=== PATIENT | male | born 1945 | race Caucasian/White ===

== ENCOUNTER 2020-05-02 23:24 | Inpatient (IN) | payer MEDICARE ==
[~2020-05-02] VITALS: Ht 162.6 cm; Wt 82.8 kg
[2020-05-03] VITALS (8 sets, daily range): BP systolic 120–162; BP diastolic 55–65; O2SAT 89–94
[2020-05-03] MEDS ORDERED: CLOP75TA2 PO (04:45)
[2020-05-03] MEDS ORDERED: PROAAER10 INH (04:45)
[2020-05-03] MEDS ORDERED: SYNT50TA PO (04:45)
[2020-05-03] MEDS ORDERED: PANT20TA51 PO (04:45)
[2020-05-03] MEDS ORDERED: CIAL10TA PO (04:45)
[2020-05-03] MEDS ORDERED: GABA-845 PO (04:45)
[2020-05-03] MEDS ORDERED: VITMTA PO (04:45)
--- NOTE | 2020-05-03 05:51 | HPEPDOC ---
[facility] Medical History & Physical Date of Admission May 03, 2020 Date of Service: May 03, 2020 Attending Physician: MIKI FELICIANO MD History and Physical CHIEF COMPLAINT: COVID19+, transfer from [facility] Symptom onset date: 04/23/20 Diagnosis date: 04/25/20 HISTORY OF PRESENT ILLNESS: Jermaine Steven is a 74 YO M with history of HTN, LAKEISHA on CPAP, Asthma, BPH who presents as transfer from [facility] for COVID19 encephalopathy. Per his records, the patient was diagnosed with Covid 19 week ago. His son wasn't able to get through to him at home and asked the police to do a welfare check. When the trouper arrived to his home no was piled high as if he hadn't left the house and some time in the patient appeared confused. At one point he was leaning forward at the waist and appeared to be having difficulty breathing. The trouper summoned the rescue squad. Per EMS, the patient was hypoxic at 77% on room air when they arrived on the scene he was placed on a nonrebreather mask at 10 L oxygen and improved to 93%. Otherwise his vitals were stable other than fever of 101. Based on his lab workup and confusion [facility] WEEKEND ANCHOR classified the patient as severe and he was transferred to [facility]. Upon presentation, the patient is alert and oriented, saturating well on room air and very pleasant. He states that his symptoms started only a few days prior to being diagnosed with COVID19, and he has only had diarrhea, now resolved, and loss of appetite. He has had a dry cough but denies any shortness of breath or dyspnea on exertion. He has felt quite fatigued and has been sleeping most of the day. He lives alone and normally makes all his own meals and takes his own medication. PAST MEDICAL HISTORY: 1. HTN 2. LAKEISHA on CPAP 3. Asthma 4. Obesity 5. BPH 6. GERD 7. Lumbar degenerative disc disease 8. History of TIA 9. History of Miranda's esophagus with esophagitis 10. Hypothyroidism 11. History of sinus bradycardia PAST SURGICAL HISTORY: 1. Tonsillectomy 2. Appendectomy 3. Hernia repair 4. Adenoidectomy 5. Vasectomy, 1989 6. Colonoscopy/endoscopy, 2015 SOCIAL HISTORY: Never smoker Denies EtOH Denies other illicit drugs Lives alone. FAMILY HISTORY: Brother-Colon cancer Father-CVA, CAD, arthritis Mother-asthma, arthritis ALLERGIES: Please see below. REVIEW OF SYSTEMS: Constitutional: Reports fatigue, denies fevers, reports loss of appetite ENT/Mouth: No Hearing Changes, No Ear Pain, No Nasal Congestion, No Sinus Pain, No Hoarseness, No sore throat, No Rhinorrhea, No Swallowing Difficulty Eyes: No Eye Pain, No Swelling, No Redness, No Foreign Body, No Discharge, No Vision Changes Cardiovascular: No Chest Pain, No SOB, No PND, No Dyspnea on Exertion, No Orthopnea, No Claudication, No Edema, No Palpitations Respiratory: Reports cough, denies shortness of breath Gastrointestinal: No Nausea, No Vomiting, Reports Diarrhea, No Constipation, No Pain, No Heartburn, No Anorexia, No Dysphagia, No Hematochezia, No Melena, No Flatulence, No Jaundice Genitourinary: No Dysuria Musculoskeletal: No Arthralgias, No Myalgias, No Joint Swelling, No Joint Stiffness, No Back Pain, No Neck Pain Skin: No Skin Lesions, No Pruritis, No Hair Changes, No Breast/Skin Changes, No Nipple Discharge Neuro: No Weakness, No Numbness, No Paresthesias, No Loss of Consciousness, No Syncope, No Dizziness, No Headache, No Coordination Changes, No Recent Falls Psych: No Anxiety/Panic, No Depression, No Insomnia, No Personality Changes, No Delusions Heme/Lymph: No Bruising, No Bleeding, No Transfusions History, No Lymphadenopathy Endocrine: No Polyuria, No Polydipsia, No Temperature Intolerance HOME MEDICATIONS: Please see below. PHYSICAL EXAMINATION: VITAL SIGNS: see below GENERAL: alert and oriented, in no apparent distress, somewhat disheveled, pleasant and conversant in full sentences. HEENT: PERRL, EOMI, Oral mucous membranes are moist without lesions. NECK: The patient has no noted JVD. No adenopathy is appreciated. No thyromegaly CHEST/LUNGS: Lungs are clear bilaterally without rhonchi, rales, or wheezes. There is no subcutaneous air appreciated. There is no tenderness to the chest wall. HEART: Regular rate and rhythm. No murmurs, rubs, or gallops are appreciated. Distal pulses are 2+. No carotid bruits appreciated. ABDOMEN: Soft, nontender, and somewhat distended. Bowel sounds are positive. No organomegaly is appreciated. No masses are appreciated. There are no peritoneal signs. There is no Mcintosh sign. EXTREMITIES: No peripheral edema. There is no focal long bone tenderness or deformity. SKIN: The patients skin is warm and dry, without rashes or lesions. PSYCHIATRIC: AAO x 3, normal mood/affect NEUROLOGIC: No obvious focal deficits LABORATORY DATA: See below. IMAGING: CXR pending Non-Contrast CT CHEST from [facility]: Read: Impression: "COVID" MICROBIOLOGY: Please see below. ASSESSMENT: This is a 74 YO M with history of HTN, Obesity, Asthma, LAKEISHA on CPAP who presents as transfer from [facility] after having been found hypoxic at home with saturation in the 70s and encephalopathic. PLAN: 1. COVID19 PNA: -Inflammatory markers (from [facility]): LDH 263, Cr 1.39, WBC 11,000, -CT chest: -IV Dexamethasone 6mg, day 1 -Incentive spirometry -Oxygen titration, >90% -Encourage proning -Tessalon Pearls for cough -Lovenox: 0.5mg/kg prophylactic dose 2. ?Superimposed bacterial community acquired PNA: -Procalcitonin pending -Empiric Ceftriaxone/Azithromycin, day 1 3. History of hypothyroidism: -TSH/T4 pending -Continue home levothyroxine 4. GERD: -Continue Protonix 5. Hx TIAs: -Continue Plavix DVT ppx: on weight-based ppx dose Lovenox DISPO: pending clinical improvement Home Medications Scheduled Clopidogrel Bisulfate (Clopidogrel) 75 Mg Tablet, 75 MG PO DAILY Gabapentin (Gabapentin) 400 Mg Capsule, 400 MG PO BID Levothyroxine Sodium (Synthroid) 50 Mcg Tablet, 50 MCG PO DAILY Multivitamins (Thera M Plus Tablet) 1 Each Tablet, 1 TAB PO QHS Pantoprazole Sodium (Pantoprazole Sodium) 20 Mg Tablet.dr, 20 MG PO DAILY Tadalafil (Cialis) 10 Mg Tablet, 10 MG PO DAILY Scheduled PRN Albuterol Sulfate (Proair Hfa) 8.5 Gm Hfa.aer.ad, 2 PUFF INH Q4H PRN for SHORTNESS OF BREATH Allergies Coded Allergies: aspirin (Verified Adverse Reaction, Unknown, DIZZINESS, 05/03/20) A-FIB/CHADSVASC A-FIB History Current/History of A-Fib/PAF?: No Current PO Anticoag Therapy: No GME ATTESTATION GME ATTESTATION My faculty preceptor for this patient encounter was physically present during the encounter and was fully available. All aspects of the patient interview, examination, medical decision making process, and medical care plan development were reviewed and approved by the faculty preceptor. The faculty preceptor is aware and concurs with the plan as stated in the body of this note and will attest to such by his/her cosignature. ATTENDING NOTE TIME OF SERVICE Mr. Steven is a 74 yr old w a hx of HTN, LAKEISHA, Asthma and obesity who was diagnosed with COVID 19 about 1 week ago; when police went to check on him he was confused & EMS reported O2 sats as low as 77%. He has been having some issues with his chimney as well. He was transferred here from [facility] for management of encephalopathy & hypoxemia possibly due to COVID vs CO poisoning. Plan: COVID order set / neurochecks / f/u Carboxyhemoglobin level / PFS consult for discharge planning LOU THOMAS MD May 03, 2020 04:48 MIKI FELICIANO MD May 03, 2020 06:49
[2020-05-03 05:56] LABS: ABG BASE EXCESS -4.9 (-2.0-2.0); ABG HCO3 16.5 MEQ/L (22.0-26.0); ABG O2 SATURATION 96.2 % (95.0-99.0); ABG PARTIAL PRESSURE CO2 23.1 mmHg (35.0-45.0); ABG STANDARD HCO3 20.4 MEQ/L (22.0-26.0); ABG TOTAL CO2 17.3 MEQ/L (23.0-31.0); ABG pH (ARTERIAL) 7.473 UNITS (7.350-7.450)
[2020-05-03] MEDS ORDERED: NS 1,000 ML IV ONE (06:00)
[2020-05-03 06:41] LABS: BASO % 0.2 % (0.0-1.0); EOS % 0.1 % (0.0-3.0); HEMATOCRIT 42.9 % (42.0-52.0); LYMPH # 1.8 10^3/uL (1.5-5.0); LYMPH % 17.6 % (24.0-44.0); MEAN CORPUSCULAR HEMOGLOBIN 32.5 pg (27.0-33.0); MEAN CORPUSCULAR VOLUME 93.1 fl (80.0-96.0); MONO # 0.7 10^3/uL (0.0-0.8); MONO % 6.8 % (0.0-5.0); NEUTROPHILS # 7.7 10^3/uL (1.5-8.5); NEUTROPHILS % 74.8 % (36.0-66.0); PLATELET COUNT, AUTOMATED 194 10^3/uL (150-450); RED BLOOD COUNT 4.61 10^6/uL (4.30-6.10); WHITE BLOOD COUNT 10.3 10^3/uL (4.0-10.0)
[2020-05-03] MEDS: LEVOTHYROXINE 50MCG TABLET (0.05MG) PO SCH (06:52)
[2020-05-03] MEDS: AZITHROMYCIN INJ 500 MG, VIAL MATE ADAPTER 1 EACH in D5W 250 ML IV SCH (06:52)
[2020-05-03 06:55] LABS: INR 1.08; PARTIAL THROMBOPLASTIN TIME 29.7 SECONDS (24.2-38.5); PROTHROMBIN TIME 14.2 SECONDS (12.5-14.3)
[2020-05-03 06:58] LABS: D-DIMER QUANT 647.64 ng/ml (<500)
[2020-05-03] MEDS ORDERED: cefTRIAXone SOD 500 MG in D5W MINI-BAG PLUS 50 ML IV SCH (07:00)
--- NOTE | 2020-05-03 07:01 | REPVR ---
PROCEDURE INFORMATION: Exam: XR Chest, 1 View Exam date and time: 05/03/19 Age: 74 years old Clinical indication: Shortness of breath; Additional info: Covid19 pna TECHNIQUE: Imaging protocol: XR of the chest Views: 1 view. COMPARISON: No relevant prior studies available. FINDINGS: Lungs: Interstitial prominence and trace airspace disease. Pleural space: No pleural effusion. Heart/Mediastinum: Unremarkable. No cardiomegaly. Bones/joints: Degenerative change. IMPRESSION: Interstitial prominence and trace airspace disease. Electronically signed by: Kenton Trevino On 05/03/2020 07:00:48 AM
[2020-05-03 07:09] LABS: ALBUMIN 2.8 GM/DL (3.2-5.2); ALT/SGPT 41 U/L (12-78); BILIRUBIN,DIRECT 0.3 MG/DL (0.0-0.2); BILIRUBIN,TOTAL 0.7 MG/DL (0.2-1.0); BLOOD UREA NITROGEN 20 MG/DL (7-18); C REACTIVE PROTEIN QUANTITATIV 5.81 MG/DL (0.00-0.30); CARBON DIOXIDE LEVEL 24 MEQ/L (21-32); CHLORIDE LEVEL 108 MEQ/L (98-107); CPK CREATINE PHOSPHOKINASE 585 U/L (39-308); CREATININE FOR GFR 1.14 MG/DL (0.70-1.30); FERRITIN 932 NG/ML (26-388); GLOMERULAR FILTRATION RATE > 60.0 (>42); GLUCOSE, FASTING 121 MG/DL (70-100); LDH LACTATE DEHYDROGENASE 255 U/L (87-241); MAGNESIUM LEVEL 1.9 MG/DL (1.8-2.4); NT-PRO BNP 158 PG/ML (<450); POTASSIUM SERUM 3.4 MEQ/L (3.5-5.1); SODIUM LEVEL 141 MEQ/L (136-145); TOTAL PROTEIN 6.4 GM/DL (6.4-8.2); TROPONIN I < 0.02 NG/ML (< 0.10)
[2020-05-03 07:14] LABS: FREE T4 1.38 NG/DL (0.76-1.46)
[2020-05-03] MEDS ORDERED: POTASSIUM CHLORIDE 10 MEQ SR TABLET PO ONE (08:30)
[2020-05-03] MEDS: ENOXAPARIN 40MG/0.4ML SYRINGE (J1650 PER 10MG) SC SCH ×2 (08:54→22:33)
[2020-05-03] MEDS: GABAPENTIN 400MG CAP PO SCH ×2 (08:54→22:32)
[2020-05-03] MEDS: PANTOPRAZOLE 20 MG TAB PO SCH (08:54)
[2020-05-03] MEDS: BENZONATATE 100 MG CAP PO SCH ×3 (08:54→22:32)
[2020-05-03] MEDS: CLOPIDOGREL 75 MG TAB PO SCH (08:54)
[2020-05-03] MEDS: dexameTHASONE 20MG/5ML VIAL (J1100 PER 1MG) IV SCH (08:54)
[2020-05-03] MEDS ORDERED: COMBIVENT RESPIMAT 100-20MCG INHALER 4GM INH PRN (09:00)
[2020-05-03] MEDS: cefTRIAXone SOD 2 GM in D5W MINI-BAG PLUS 50 ML IV SCH (11:25)
--- NOTE | 2020-05-03 15:15 | IPNPDOC ---
Text Note Date of Service The patient was seen on 05/03/20. NOTE Tested positive on 04/25/2020 Symptoms onset on 04/23/2020 Subjective: Patient seen and examined at bedside. He reports to be having multiple episodes of bowel movements/diarrhea, he is hard of hearing, he is alert oriented 3. Denies having any shortness of breath, cough. No acute events overnight. Physical exam: Gen.: Patient is alert oriented 3, in no acute distress. CVS: S1-S2 heard, no murmur heard. Respiratory: Clear bilateral breath sounds, no rhonchi or rails or wheezes Abdomen: Soft, nontender, positive bowel sounds. Extremities: 1+ pedal edema noted bilaterally in the ankles. NIGHT CLERK AUDITOR: Alert oriented 3, no focal deficits. Assessment: 74 year old male patient with past medical history of hypertension, LAKEISHA on CPAP at home, asthma, hypothyroidism, BPH, obesity who was transferred from [facility] after having an hypoxic episode at home with a saturation of 77%. He was taken to [facility] by EMS on nonrebreather 10 L 93% saturation. He was transferred to [facility] saying patient is mildly confused and encephalopathic, but on arrival to [facility] patient is alert oriented 3. Plan: Covid - 19 pneumonia: - Patient won't be a candidate for Remdisvir given he was tested positive on 25 of April. - Will continue dexamethasone 6 mg, day 1 - He did receive a dose of azithromycin in the ED, and he was started on ceftriaxone and today would be day 1. - Will continue Lovenox 40 mg twice a day for now given his d-dimer is 647 - Encourage patient to use incentive spirometry. - Alyce Trevino for cough Diarrhea: - Was likely due to Covid infection. -Will not consider getting a GI panel at this point of time. Suspected Community acquired pneumonia: - Pro-calcitonin pending - Serology for Mycoplasma pneumonia pending. - Will continue ceftriaxone for now. Hypokalemia: - Patient has a potential most 3.4 this morning. - Was replaced with oral potassium chloride. Hypothyroidism: - Continue home medications levothyroxine GERD:- - Will Continue Protonix History of TIAs: - Continue Plavix DVT prophylaxis: - On Lovenox 40 mg twice a day. Disposition: Pending clinical improvement. VS,Fishbone, I+O VS, Fishbone, I+O Laboratory Tests 05/03/20 06:12 Vital Signs Date Time Temp Pulse Resp B/P (MAP) Pulse Ox O2 Delivery O2 Flow Rate FiO2 05/03/20 12:00 91 Room Air 05/03/20 07:47 99.5 76 22 120/55 (76) I&O- Last 24 Hours up to 6 AM 05/03/20 06:00 Intake Total 0 ml Output Total 0 ml Balance 0 ml GME ATTESTATION GME ATTESTATION My faculty preceptor for this patient encounter was physically present during the encounter and was fully available. All aspects of the patient interview, examination, medical decision making process, and medical care plan development were reviewed and approved by the faculty preceptor. The faculty preceptor is aware and concurs with the plan as stated in the body of this note and will attest to such by his/her cosignature. ATTENDING NOTE I, Presley Valle MD, have independently examined this patient and performed my own physical exam, as well as reviewed the documentation and edited where necessary. I have discussed in detail with the resident / student the findings and plan of treatment as documented by the resident / student and edited their note. I agree with their findings and treatment plan and have edited their documentation. Olman Diamond MD May 03, 2020 15:15 PRESLEY VALLE MD May 10, 2020 12:48
[2020-05-03] MEDS: MULTIVITAMINS/MINERALS THERAP 1 TAB PO SCH (22:32)
[2020-05-04 00:29] VITALS: O2SAT 95
[2020-05-04 04:47] VITALS: BP 144/89
[2020-05-04] MEDS: LEVOTHYROXINE 50MCG TABLET (0.05MG) PO SCH (05:07)
[2020-05-04] MEDS: AZITHROMYCIN INJ 500 MG, VIAL MATE ADAPTER 1 EACH in D5W 250 ML IV SCH (05:08)
[2020-05-04 06:14] LABS: HEMATOCRIT 41.3 % (42.0-52.0); HEMOGLOBIN 14.3 g/dl (13.5-17.5); LYMPH # 1.1 10^3/uL (1.5-5.0); LYMPH % 14.3 % (24.0-44.0); MEAN CORPUSCULAR HEMOGLOBIN 32.4 pg (27.0-33.0); MEAN CORPUSCULAR HGB CONC 34.6 g/dl (32.0-36.5); MEAN CORPUSCULAR VOLUME 93.4 fl (80.0-96.0); MONO # 0.5 10^3/uL (0.0-0.8); MONO % 7.2 % (0.0-5.0); NEUTROPHILS # 5.7 10^3/uL (1.5-8.5); NEUTROPHILS % 77.4 % (36.0-66.0); PLATELET COUNT, AUTOMATED 210 10^3/uL (150-450); RED BLOOD COUNT 4.42 10^6/uL (4.30-6.10); WHITE BLOOD COUNT 7.4 10^3/uL (4.0-10.0)
[2020-05-04 06:28] VITALS: O2SAT 95
[2020-05-04 06:49] LABS: ALBUMIN 2.6 GM/DL (3.2-5.2); ALT/SGPT 36 U/L (12-78); BILIRUBIN,TOTAL 0.3 MG/DL (0.2-1.0); BLOOD UREA NITROGEN 17 MG/DL (7-18); C REACTIVE PROTEIN QUANTITATIV 4.11 MG/DL (0.00-0.30); CALCIUM LEVEL 9.1 MG/DL (8.8-10.2); CARBON DIOXIDE LEVEL 24 MEQ/L (21-32); CHLORIDE LEVEL 110 MEQ/L (98-107); CREATININE FOR GFR 0.96 MG/DL (0.70-1.30); FERRITIN 911 NG/ML (26-388); GLOMERULAR FILTRATION RATE > 60.0 (>42); GLUCOSE, FASTING 168 MG/DL (70-100); LDH LACTATE DEHYDROGENASE 230 U/L (87-241); POTASSIUM SERUM 3.6 MEQ/L (3.5-5.1); SODIUM LEVEL 143 MEQ/L (136-145); TOTAL PROTEIN 6.2 GM/DL (6.4-8.2)
[2020-05-04] MEDS: dexameTHASONE 20MG/5ML VIAL (J1100 PER 1MG) IV SCH (08:25)
[2020-05-04] MEDS: ENOXAPARIN 40MG/0.4ML SYRINGE (J1650 PER 10MG) SC SCH ×2 (08:25→21:03)
[2020-05-04] MEDS: PANTOPRAZOLE 20 MG TAB PO SCH (08:26)
[2020-05-04] MEDS: GABAPENTIN 400MG CAP PO SCH ×2 (08:26→21:03)
[2020-05-04] MEDS: BENZONATATE 100 MG CAP PO SCH ×3 (08:26→21:03)
[2020-05-04] MEDS: CLOPIDOGREL 75 MG TAB PO SCH (08:26)
[2020-05-04] MEDS: cefTRIAXone SOD 2 GM in D5W MINI-BAG PLUS 50 ML IV SCH (08:26)
--- NOTE | 2020-05-04 10:13 | IPNPDOC ---
Text Note Date of Service The patient was seen on 05/04/20. NOTE Tested positive on 04/25/2020. Symptoms onset on 04/23/2020 Subjective: Patient seen at bedside and examined today. Mr. Dean is having his breakfast when I went to see him, He reports his bowel movements have come down and had no bowel movements since night and today morning. He denies having any shortness of breath, reports having mild dry cough, no acute events overnight, patient reports to be eating well and sleeping well. Physical exam: GEN: Patient is a little oriented 3, no acute distress CVS: S1 and S2 heard, no murmur appreciated. Respiratory: Clear bilateral breath sounds heard in both lungs, no rhonchi or wheezes. Abdomen: Soft to touch, no tenderness, positive bowel sounds heard. Extremities: No edema, no clubbing. CONFIGURATION TECHNICIAN: Alert oriented 3, no focal deficits. Assessment: 74-year-old male patient with past medical history of HTN, LAKEISHA on CPAP at home, asthma, hypothyroidism, BPH and obesity was transferred from [facility] after having a hypoxic episode at home with saturation of 77%. He was taken to [facility] by EMS on nonrebreather at 10 L 93% saturation. He was transferred to [facility] saying patient is having mild confusion and encephalopathic, on arrival to [facility] patient is alert oriented 3. Plan: Covid 19 pneumonia: - patient won't be a candidate for remdisvir given he was tested positive on Apr.] - Continue dexamethasone 6 mg, today would be day 2. - Continue azithromycin 500 MG, ceftriaxone 2 g daily. Today is day 2 of antibiotics. - Continue Lovenox 40 mg twice a day. - Encourage patient to use incentive spirometry as much as possible. - Continue Tessalon Perles for cough - Patient CRP is trending down today at 4.11 came down from 5.81. Diarrhea: -Patient reports he had no bowel movement since yesterday night. Suspected community-acquired pneumonia: - Pro-Alex is 0.09, unlikely bacterial pneumonia. Serology Mycoplasma pneumonia pending, most likely will be comeback negative. - Will continue ceftriaxone and azithromycin for now Hypothyroidism: - Continue home medication levothyroxin GERD: - Will continue Protonix History of TIAs: -As patient is is allergic to aspirin . -Patient is on Plavix 75 MG at home will continue that. DVT prophylaxis: - Will continue Lovenox 40 mg twice a day Disposition: - Patient seems to be doing well today and is on room air saturating at 95%, He can be discharged in a day or 2 if develops no new symptoms and is still on room air. VS,Fishbone, I+O VS, Fishbone, I+O Laboratory Tests 05/04/20 05:53 Vital Signs Date Time Temp Pulse Resp B/P (MAP) Pulse Ox O2 Delivery O2 Flow Rate FiO2 05/04/20 06:28 95 Room Air 05/04/20 04:47 96.8 50 18 144/89 (107) I&O- Last 24 Hours up to 6 AM 05/04/20 06:00 Intake Total 1640 ml Output Total 0 ml Balance 1640 ml Olman Diamond MD May 04, 2020 10:12
[2020-05-04 14:00] VITALS: BP 132/63
[2020-05-04 20:39] VITALS: BP 145/65
[2020-05-04 20:48] VITALS: O2SAT 94
[2020-05-04] MEDS: MULTIVITAMINS/MINERALS THERAP 1 TAB PO SCH (21:03)
[2020-05-05] VITALS (17 sets, daily range): BP systolic 135–167; BP diastolic 67–77; O2SAT 94–98
[2020-05-05] MEDS: LEVOTHYROXINE 50MCG TABLET (0.05MG) PO SCH (05:34)
[2020-05-05] MEDS: AZITHROMYCIN INJ 500 MG, VIAL MATE ADAPTER 1 EACH in D5W 250 ML IV SCH (05:35)
[2020-05-05 07:03] LABS: BASO % 0.1 % (0.0-1.0); HEMOGLOBIN 14.7 g/dl (13.5-17.5); LYMPH # 1.3 10^3/uL (1.5-5.0); LYMPH % 11.4 % (24.0-44.0); MEAN CORPUSCULAR HEMOGLOBIN 32.8 pg (27.0-33.0); MEAN CORPUSCULAR VOLUME 93.8 fl (80.0-96.0); MONO # 0.7 10^3/uL (0.0-0.8); MONO % 6.5 % (0.0-5.0); NEUTROPHILS # 9.1 10^3/uL (1.5-8.5); NEUTROPHILS % 81.4 % (36.0-66.0); PLATELET COUNT, AUTOMATED 226 10^3/uL (150-450); RED BLOOD COUNT 4.48 10^6/uL (4.30-6.10); WHITE BLOOD COUNT 11.2 10^3/uL (4.0-10.0)
[2020-05-05 07:35] LABS: ALBUMIN 2.5 GM/DL (3.2-5.2); ALT/SGPT 37 U/L (12-78); BILIRUBIN,TOTAL 0.3 MG/DL (0.2-1.0); BLOOD UREA NITROGEN 21 MG/DL (7-18); C REACTIVE PROTEIN QUANTITATIV 1.66 MG/DL (0.00-0.30); CARBON DIOXIDE LEVEL 23 MEQ/L (21-32); CHLORIDE LEVEL 110 MEQ/L (98-107); CREATININE FOR GFR 0.98 MG/DL (0.70-1.30); FERRITIN 768 NG/ML (26-388); GLOMERULAR FILTRATION RATE > 60.0 (>42); GLUCOSE, FASTING 160 MG/DL (70-100); LDH LACTATE DEHYDROGENASE 231 U/L (87-241); POTASSIUM SERUM 3.8 MEQ/L (3.5-5.1); SODIUM LEVEL 144 MEQ/L (136-145); TOTAL PROTEIN 6.1 GM/DL (6.4-8.2)
[2020-05-05] MEDS: dexameTHASONE 20MG/5ML VIAL (J1100 PER 1MG) IV SCH (09:30)
[2020-05-05] MEDS: cefTRIAXone SOD 2 GM in D5W MINI-BAG PLUS 50 ML IV SCH (09:31)
[2020-05-05] MEDS: BENZONATATE 100 MG CAP PO SCH ×3 (09:31→21:11)
[2020-05-05] MEDS: ENOXAPARIN 40MG/0.4ML SYRINGE (J1650 PER 10MG) SC SCH ×2 (09:31→21:12)
[2020-05-05] MEDS: GABAPENTIN 400MG CAP PO SCH ×2 (09:31→21:11)
[2020-05-05] MEDS: CLOPIDOGREL 75 MG TAB PO SCH (09:31)
[2020-05-05] MEDS: PANTOPRAZOLE 20 MG TAB PO SCH (09:32)
--- NOTE | 2020-05-05 14:54 | IPNPDOC ---
Date Seen The patient was seen on 05/05/20. Progress Note SUBJECTIVE: She is seen and examined at bedside. Saturating 98% on room air. Doing well. No acute events overnight. PT is recommending likely rehabilitation after discharge. Denies chest pain, fevers, chills, nausea, vomiting, diarrhea, shortness of breath, palpitations. OBJECTIVE PHYSICAL EXAMINATION: VITAL SIGNS: please see below General: NAD, comfortable HEENT: PERRLA, EOMI, sclerae clear Neck: supple, normal ROM, no JVD Respiratory: lungs CTAB, no wheeze, no rales, no crackles CVS: RRR, normal S1, S2, no murmurs Abdo: soft, no masses, no hepatosplenomegaly, BS+, no rebound tenderness Extremities: no edema, pulses 2+ MSK: no joint deformities, normal ROM Neuro: no focal neuro deficits, moving all 4 extremities, CN2-12 intact. Strength 5/5 in all 4 extremities. No nystagmus. Psych: calm, cooperative, AAO x 3 LABORATORY DATA, IMAGING STUDIES, MICROBIOLOGY: Please see below. DVT prophylaxis ordered?: Replace prophylactic dosing Lovenox 0.5 mg/kg every 12 hours. ASSESSMENT AND PLAN: 74-year-old male patient with past medical history of HTN, LAKEISHA on CPAP at home, asthma, hypothyroidism, BPH and obesity was transferred from [facility] after having a hypoxic episode at home with saturation of 77%. He was taken to [facility] by EMS on nonrebreather at 10 L 93% saturation. He was transferred to [facility] saying patient is having mild confusion and encephalopathic, on arrival to [facility] patient is alert oriented 3. PROBLEMS: Covid 19 pneumonia: - not a candidate for remdesivir as out of chronicity window (positive on 04/25/20) - as no hypoxia, stop dexamethasone IV (completed 2 days), continue prednisone 40 mg x 5 days. - s/p 2 days ceftriaxone, zithro - switched to doxycycline 100 mg BID x 5 days - lovenox 0.5 mg/kg q12h - Encourage patient to use incentive spirometry as much as possible. - tessalon - CRP trending down Diarrhea -resolved Suspected community-acquired pneumonia: - Pro-Alex is 0.09, unlikely bacterial pneumonia. Serology Mycoplasma pneumonia pending, most likely will be comeback negative. - DC ceftriaxone, azithromycin - complete 5 days doxycycline PO q12h (EOT 05/10/20) Hypothyroidism: - Continue home medication levothyroxin GERD: -Protonix History of TIAs: -As patient is is allergic to aspirin . -Plavix 75 mg. DVT prophylaxis: -SCDs. 10 Lovenox weight-based prophylactic dosing, 0.5 mg/kg every 12 hours. Dispo: PT recommending rehab VS, I&O, 24H, Fishbone Vital Signs/I&O Vital Signs Date Time Temp Pulse Resp B/P (MAP) Pulse Ox O2 Delivery O2 Flow Rate FiO2 05/05/20 12:00 98 Room Air 05/05/20 09:32 95.7 51 20 153/67 (95) I&O- Last 24 Hours up to 6 AM 05/05/20 06:00 Intake Total 530 ml Balance 530 ml Laboratory Data 24H LABS Laboratory Tests 2 05/05/20 06:09: Immature Granulocyte % (Auto) 0.6, Neutrophils (%) (Auto) 81.4H, Lymphocytes (%) (Auto) 11.4L, Monocytes (%) (Auto) 6.5H, Eosinophils (%) (Auto) 0.0, Basophils (%) (Auto) 0.1, Neutrophils # (Auto) 9.1H, Lymphocytes # (Auto) 1.3L, Monocytes # (Auto) 0.7, Eosinophils # (Auto) 0.0, Basophils # (Auto) 0.0, Nucleated Red Blood Cells % (auto) 0.0, Fibrinogen 558H, Anion Gap 11, Glomerular Filtration Rate > 60.0, Calcium Level 10.0, Ferritin 768H, Total Bilirubin 0.3, Aspartate Amino Transf (AST/SGOT) 23, Alanine Aminotransferase (ALT/SGPT) 37, Alkaline Phosphatase 63, Lactate Dehydrogenase 231, C-Reactive Protein, Quantitative 1.66H, Total Protein 6.1L, Albumin 2.5L, Albumin/Globulin Ratio 0.7 CBC/BMP Laboratory Tests 05/05/20 06:09 Microbiology Microbiology 05/03/20 Blood Culture - Preliminary, Resulted No Growth after 48 hours. All Specime... 05/03/20 Blood Culture - Preliminary, Resulted No Growth after 48 hours. All Specime... AV CHAU MD May 05, 2020 14:54
[2020-05-05] MEDS: DOXYCYCLINE HYCLATE 100MG TABLET PO SCH (21:11)
[2020-05-05] MEDS: MULTIVITAMINS/MINERALS THERAP 1 TAB PO SCH (21:11)
[2020-05-06] VITALS (13 sets, daily range): BP systolic 154; BP diastolic 70; O2SAT 96–98
[2020-05-06] MEDS: LEVOTHYROXINE 50MCG TABLET (0.05MG) PO SCH (06:13)
[2020-05-06] MEDS: GABAPENTIN 400MG CAP PO SCH (09:15)
[2020-05-06] MEDS: BENZONATATE 100 MG CAP PO SCH ×2 (09:15→16:43)
[2020-05-06] MEDS: CLOPIDOGREL 75 MG TAB PO SCH (09:15)
[2020-05-06] MEDS: dexameTHASONE 20MG/5ML VIAL (J1100 PER 1MG) IV SCH (09:15)
[2020-05-06] MEDS: PANTOPRAZOLE 20 MG TAB PO SCH (09:15)
[2020-05-06] MEDS: DOXYCYCLINE HYCLATE 100MG TABLET PO SCH (09:15)
[2020-05-06] MEDS: ENOXAPARIN 40MG/0.4ML SYRINGE (J1650 PER 10MG) SC SCH (09:16)
[2020-05-06 09:36] LABS: BASO % 0.2 % (0.0-1.0); HEMATOCRIT 46.2 % (42.0-52.0); HEMOGLOBIN 15.7 g/dl (13.5-17.5); LYMPH # 1.6 10^3/uL (1.5-5.0); LYMPH % 12.7 % (24.0-44.0); MEAN CORPUSCULAR HEMOGLOBIN 32.2 pg (27.0-33.0); MEAN CORPUSCULAR VOLUME 94.7 fl (80.0-96.0); MONO # 0.9 10^3/uL (0.0-0.8); MONO % 6.7 % (0.0-5.0); NEUTROPHILS # 10.2 10^3/uL (1.5-8.5); NEUTROPHILS % 79.6 % (36.0-66.0); PLATELET COUNT, AUTOMATED 230 10^3/uL (150-450); RED BLOOD COUNT 4.88 10^6/uL (4.30-6.10); WHITE BLOOD COUNT 12.8 10^3/uL (4.0-10.0)
[2020-05-06 10:24] LABS: ALT/SGPT 63 U/L (12-78); BLOOD UREA NITROGEN 19 MG/DL (7-18); CALCIUM LEVEL 10.3 MG/DL (8.8-10.2); CARBON DIOXIDE LEVEL 25 MEQ/L (21-32); CHLORIDE LEVEL 110 MEQ/L (98-107); GLOMERULAR FILTRATION RATE > 60.0 (>42); GLUCOSE, FASTING 106 MG/DL (70-100); LDH LACTATE DEHYDROGENASE 298 U/L (87-241); POTASSIUM SERUM 3.8 MEQ/L (3.5-5.1); SODIUM LEVEL 144 MEQ/L (136-145)
[2020-05-06 10:25] LABS: BILIRUBIN,TOTAL 0.5 MG/DL (0.2-1.0); C REACTIVE PROTEIN QUANTITATIV 0.94 MG/DL (0.00-0.30); FERRITIN 892 NG/ML (26-388); TOTAL PROTEIN 6.7 GM/DL (6.4-8.2)
[2020-05-06] MEDS ORDERED: PRED20TA PO (11:57)
[2020-05-06] MEDS ORDERED: BENZ-18 PO (11:57)
[2020-05-06] MEDS ORDERED: COMBAER6 INH (11:57)
[2020-05-06] MEDS ORDERED: DOXY100T PO (11:57)
--- NOTE | 2020-05-06 12:00 | DS.PDOC ---
Discharge Summary General Date of Admission May 03, 2020 at 04:33 Date of Discharge 05/06/2020 Discharge Summary PROCEDURES PERFORMED DURING STAY: None. ADMITTING/DISCHARGE DIAGNOSES: 1. Covid 19 pneumonia 2. Diarrhea 3. Hypothyroidism 4. GERD 5. History of TIA's 6. History of sinus bradycardia 7. History of Miranda's esophagus with esophagitis 8. Asthma 9. BPH 10. Obesity 11. [place]IS[place] on CPAP 12. Hypertension COMPLICATIONS/CHIEF COMPLAINT: Covid+, Encephalopathy. HISTORY OF PRESENT ILLNESS: Jermaine Steven is a 74 YO M with history of HTN, LAKEISHA on CPAP, Asthma, BPH who presents as transfer from [facility] for COVID19 encephalopathy. Per his records, the patient was diagnosed with Covid 19 week ago. His son wasn't able to get through to him at home and asked the police to do a welfare check. When the trouper arrived to his home no was piled high as if he hadn't left the house and some time in the patient appeared confused. At one point he was leaning forward at the waist and appeared to be having difficulty breathing. The trouper summoned the rescue squad. Per EMS, the patient was hypoxic at 77% on room air when they arrived on the scene he was placed on a nonrebreather mask at 10 L oxygen and improved to 93%. Otherwise his vitals were stable other than fever of 101. Based on his lab workup and confusion [facility] [employer] classified the patient as severe and he was transferred to [facility]. Upon presentation, the patient is alert and oriented, saturating well on room air and very pleasant. He states that his symptoms started only a few days prior to being diagnosed with COVID19, and he has only had diarrhea, now resolved, and loss of appetite. He has had a dry cough but denies any shortness of breath or dyspnea on exertion. He has felt quite fatigued and has been sleeping most of the day. He lives alone and normally makes all his own meals and takes his own medication. HOSPITAL COURSE: Patient was admitted to the hospital and started on IV dexamethasone and was started on Rocephin and azithromycin for possible superimposed bacterial pneumonia. The course of his stay he initially had multiple loose bowel movements however these slowly resolved. His CRP and inflammatory markers slowly came down. His pro calcitonin was 0.09 so his Rocephin and azithromycin were discontinued after 2 days however there is concern for possible atypical pneumonia still so he was continued on doxycycline orally for 5 days. He was also transitioned from IV dexamethasone to oral prednisone for an additional 5 days. His discharge was delayed 2 days pending PT clearance. DISCHARGE MEDICATIONS: Please see below. ALLERGIES: Please see below. PHYSICAL EXAMINATION ON DISCHARGE: VITAL SIGNS: Please see below. General: Well-appearing male resting comfortably in bed in no acute distress. HEENT: NC, AT, EOMI, sclerae clear Neck: supple, normal ROM, no JVD Respiratory: lungs CTAB, no wheeze, no crackles, no rhonchi. CVS: RRR, normal S1, S2, no murmurs Abdo: soft, no masses, no hepatosplenomegaly, BS+, no rebound tenderness Extremities: no edema, pulses 2+ MSK: no joint deformities, normal ROM Neuro: no focal neuro deficits, moving all 4 extremities, CN2-12 intact. No gait abnormalities observed. Psych: calm, cooperative, AAO x 3 LABORATORY DATA: Please see below. IMAGIN05/03/2020 chest x-ray: Interstitial prominence and trace airspace disease. PROGNOSIS: Fair ACTIVITY: Per PT/OT DIET: As tolerated DISCHARGE PLAN: Home with services DISCHARGE INSTRUCTIONS: 1. Continue with doxycycline for 5 days, continue with prednisone for 5 days, continue with Tessalon Perles and Combivent as needed. 2. Follow-up with PCP in the next week. DISCHARGE CONDITION: Stable. TIME SPENT ON DISCHARGE: 33 minutes. Vital Signs/I&Os Vital Signs Date Time Temp Pulse Resp B/P (MAP) Pulse Ox O2 Delivery O2 Flow Rate FiO2 05/06/20 10:00 98 Room Air 05/06/20 08:12 95.8 42 19 154/70 (98) I&O- Last 24 Hours up to 6 AM 05/06/20 06:00 Intake Total 1405 ml Output Total 600 ml Balance 805 ml Laboratory Data Labs 24H Laboratory Tests 2 05/06/20 08:34: Immature Granulocyte % (Auto) 0.8, Neutrophils (%) (Auto) 79.6H, Lymphocytes (%) (Auto) 12.7L, Monocytes (%) (Auto) 6.7H, Eosinophils (%) (Auto) 0.0, Basophils (%) (Auto) 0.2, Neutrophils # (Auto) 10.2H, Lymphocytes # (Auto) 1.6, Monocytes # (Auto) 0.9H, Eosinophils # (Auto) 0.0, Basophils # (Auto) 0.0, Nucleated Red Blood Cells % (auto) 0.0, Fibrinogen 522H, Anion Gap 9, Glomerular Filtration Rate > 60.0, Calcium Level 10.3H, Ferritin 892H, Total Bilirubin 0.5#, Aspartate Amino Transf (AST/SGOT) 38H, Alanine Aminotransferase (ALT/SGPT) 63, Alkaline Phosphatase 70, Lactate Dehydrogenase 298H, C-Reactive Protein, Quantitative 0.94H, Total Protein 6.7, Albumin 3.0L, Albumin/Globulin Ratio 0.8 CBC/BMP Laboratory Tests 05/06/20 08:34 Microbiology Microbiology 05/03/20 Blood Culture - Preliminary, Resulted No Growth after 72 hours. All specime... 05/03/20 Blood Culture - Preliminary, Resulted No Growth after 72 hours. All specime... Discharge Medications Scheduled Benzonatate (Benzonatate) 100 Mg Capsule, 200 MG PO TID Take 1 capsule by mouth three times daily for cough Clopidogrel Bisulfate (Clopidogrel) 75 Mg Tablet, 75 MG PO DAILY, (Reported) Doxycycline Hyclate (Doxycycline Hyclate) 100 Mg Tablet, 100 MG PO BID Take 1 tablet twice daily for 4 more days Gabapentin (Gabapentin) 400 Mg Capsule, 400 MG PO BID, (Reported) Levothyroxine Sodium (Synthroid) 50 Mcg Tablet, 50 MCG PO DAILY, (Reported) Multivitamins (Thera M Plus Tablet) 1 Each Tablet, 1 TAB PO QHS, (Reported) Pantoprazole Sodium (Pantoprazole Sodium) 20 Mg Tablet.dr, 20 MG PO DAILY, (Reported) Prednisone (Prednisone) 20 Mg Tablet, 1 TAB PO BID Tadalafil (Cialis) 10 Mg Tablet, 10 MG PO DAILY, (Reported) Scheduled PRN Albuterol Sulfate (Proair Hfa) 8.5 Gm Hfa.aer.ad, 2 PUFF INH Q4H PRN for SHORTNESS OF BREATH, (Reported) Ipratropium/Albuterol Sulfate (Combivent Respimat 20-100 Mcg) 4 Gm Mist.inhal, 1 PUFF INH Q6HP PRN for SHORTNESS OF BREATH Inhale every 6 hours as needed for shortness of breath or wheezing. Allergies Coded Allergies: aspirin (Verified Adverse Reaction, Unknown, DIZZINESS, 05/03/20) GME ATTESTATION GME ATTESTATION My faculty preceptor for this patient encounter was physically present during the encounter and was fully available. All aspects of the patient interview, examination, medical decision making process, and medical care plan development were reviewed and approved by the faculty preceptor. The faculty preceptor is aware and concurs with the plan as stated in the body of this note and will attest to such by his/her cosignature. ATTENDING NOTE I, Presley Harris MD, have independently examined this patient and performed my own physical exam, as well as reviewed the documentation and edited where ne cessary. I have discussed in detail with the resident / student the findings and plan of treatment as documented by the resident / student and edited their note. I agree with their findings and treatment plan and have edited their documentation. EVANGELISTA REBOLLAR DO May 06, 2020 12:00 PRESLEY HARRIS MD May 10, 2020 12:50
[2020-05-06 13:07] LABS: BODY FLUID CULTURE Not indicated. (.); LEGIONELLA ANTIGEN URINE Negative (Negative); ORGANISM ID Not indicated. (.); SPECIMEN SOURCE Urine (.); URINE STREP PNEUMONIAE ANTIGEN Negative (Negative)
[2020-05-06 14:09] LABS: MYCOPLASMA PNEUMONIAE IgG <100 U/mL (0-99); MYCOPLASMA PNEUMONIAE IgM <770 U/mL (0-769)
== END 2020-05-06 18:35 | disposition home health service (06) | DRG 177 ==
LOC: M 4MAIN 05-03 04:33
PROVIDERS: ADMIT Internal Medicine; ATTEND Internal Medicine
DX: U07.1 COVID-19 (principal); J12.89 Other viral pneumonia; G93.40 Encephalopathy, unspecified; I10 Essential (primary) hypertension; E03.9 Hypothyroidism, unspecified; E66.9 Obesity, unspecified; K21.9 Gastro-esophageal reflux disease without esophagitis; N40.0 Benign prostatic hyperplasia without lower urinary tract symptoms; G47.33 Obstructive sleep apnea (adult) (pediatric); Z86.73 Personal history of transient ischemic attack (TIA), and cerebral infarction without residual deficits; J45.909 Unspecified asthma, uncomplicated; K22.70 Barrett's esophagus without dysplasia; R19.7 Diarrhea, unspecified; Z79.899 Other long term (current) drug therapy; Z88.6 Allergy status to analgesic agent; E87.6 Hypokalemia

== ENCOUNTER → 2020-11-27 | Outpatient (CLI) | payer MEDICARE, OTHER ==
[~2020-11-27] MED LIST: BENZ-18 PO; CIAL10TA PO; CLOP75TA2 PO; COMBAER6 INH; DOXY100T PO; E-Z-GAS II EFFERVESCENT PACKET (SODIUM BICARB./CITRIC ACID/SIMETHICONE) As Ordered ONE; E-Z-HD 98% w/w 340GM SUSP BTL As Ordered ONE; E-Z-PAQUE 96% w/w SUSP 176GM BTL As Ordered ONE; GABA-283 PO; PANT20TA51 PO; PRED20TA PO; PROAAER10 INH; SYNT50TA PO; VITMTA PO
--- NOTE | 2020-11-27 16:40 | REP ---
INDICATION: DYSPHAGIA. COMPARISON: None TECHNIQUE: This procedure was performed by Adilene Monique [facility], under the direct supervision of Dr. Hull. Images were reviewed with Dr. Hull prior to dictation. Liquid barium and gas producing crystals were given in the erect position, as well as liquid barium in the prone oblique position in order to perform a double contrast esophagram examination. FINDINGS: A single view PA chest x-ray is submitted as a immigration coordinator film. The superior mediastinal structures are midline. The heart size is within normal limits. The lungs are clear. The oral and pharyngeal stages of deglutition were unremarkable. Esophageal transport is prompt and efficient and there is no evidence of esophagitis, stricture, or mucosal ring. There is no evidence of a hiatal hernia. No gastroesophageal reflux was visualized during the exam. IMPRESSION: Unremarkable esophagram 0.2 minutes of fluoroscopy time was utilized for this procedure. Some fluoroscopic images are performed with last image hold technology. These images require no additional radiation. <Electronically signed by Adilene Monique > 11/27/20 [id number] <Electronically signed by Ham Hull > 11/27/20 [id number]
== END ==
LOC: M RAD 09:44
PROVIDERS: ATTEND Nurse Practitioner Family
DX: R13.10 Dysphagia, unspecified (principal)

== ENCOUNTER → 2020-12-23 | Outpatient (CLI) | payer MEDICARE, OTHER ==
[~2020-12-23] MED LIST changes: +BARIUM SULFATE 700 MG TABLET (E-Z-DISK) As Ordered ONE; -E-Z-GAS II EFFERVESCENT PACKET (SODIUM BICARB./CITRIC ACID/SIMETHICONE) As Ordered ONE; -E-Z-HD 98% w/w 340GM SUSP BTL As Ordered ONE; +VARIBAR NECTAR 40% w/v 240ML SUSP BTL As Ordered ONE; +VARIBAR PUDDING 40% w/v 230ML TUBE As Ordered ONE
--- NOTE | 2020-12-23 15:11 | REP ---
INDICATION: K117 DROOLING. COMPARISON: None. TECHNIQUE: The procedure was performed by Adilene Monique [facility], under the direct supervision of Dr. Hull. The procedure was performed with Gauri Tenorio from speech pathology present. 5 ml aliquots of thin, pudding, mixed fruit, soft food, and hard food consistency barium was administered. FINDINGS: No aspiration or penetration was visualized during the exam. The detailed report of this examination will be provided by speech pathology. IMPRESSION: Unremarkable modified barium swallow, a detailed report will be provided by speech pathology. 1.4 minutes of fluoroscopy time was utilized for this procedure. Some fluoroscopic images are performed with last image hold technology. These images require no additional radiation <Electronically signed by Adilene Monique > 12/23/20 1508 <Electronically signed by Ham Hull > 12/23/20 1501
== END ==
LOC: M RAD 13:52
PROVIDERS: ATTEND Nurse Practitioner Family
DX: K11.7 Disturbances of salivary secretion (principal)